=== PATIENT | female | born 1950 | race Caucasian/White ===

== ENCOUNTER → 2023-05-02 06:26 | Day surgery (SDC) | payer MEDICARE, OTHER, SELFPAY | LOC: GI 06:26 | PROVIDERS: ATTENDING PHYSICIAN Internal Medicine Gastroenterology; FAMILY PHYSICIAN Internal Medicine | DX: K20.90 Esophagitis, unspecified without bleeding (principal); K22.89 Other specified disease of esophagus; K44.9 Diaphragmatic hernia without obstruction or gangrene; K31.7 Polyp of stomach and duodenum; R13.10 Dysphagia, unspecified | CPT/HCPCS: 43249; 88305 ==

== ENCOUNTER → 2023-06-09 13:15 | Outpatient (REF) | payer MEDICARE, OTHER, SELFPAY ==
[2023-06-09 16:39] LABS: Erythrocyte Sed Rate 85 mm/hour (0-20)
[2023-06-09 16:46] LABS: C-Reactive Protein < 5.00 mg/L (0.0-10.00)
[2023-06-09 17:04] LABS: % Basophils 0.2 % (0-2); % Eosinophils 0.9 % (0-6); % Immature Granulocytes 0.2 % (0-0.5); % Lymphocytes 26.2 % (20.5-51.1); % Monocytes 6.6 % (1.7-9.3); % Neutrophils 65.9 % (42.2-75.2); Absolute Eosinophils 0.1 10^3/uL (0-0.7); Absolute Lymphocytes 1.4 10^3/uL (1.2-3.4); Absolute Monocytes 0.4 10^3/uL (0.1-0.6); Absolute Neutrophils 3.5 10^3/uL (1.4-6.5); Hematocrit 38.7 % (37.0-47.0); Hemoglobin 12.9 g/dL (12.0-16.0); Mean Corp Hgb Conc. 33.3 g/dL (33.0-37.0); Mean Corpuscular Hgb 32.7 pg (27.0-31.0); Mean Corpuscular Volume 98.2 fL (81.0-99.0); Mean Platelet Volume 11.3 fL (7.4-10.4); Nucleated Red Blood Cells % 0 %; Platelet Count 225 10^3/uL (130-400); Red Blood Cell Count 3.94 10^6/uL (4.20-5.40); Red Cell Dist. Width 12.6 % (11.5-14.5); White Blood Cell Count 5.3 10^3/uL (4.8-10.8)
[2023-06-12 07:22] LABS: CCP Antibody IgG/IgA 5 Units (0-19)
[2023-06-12 14:49] LABS: Rheumatoid Agglutinin Positive (<10 IU)
[2023-06-12 16:07] LABS: Rheumatoid Agg. Semi-quant 8 IU
== END ==
LOC: HWLAB 13:15
PROVIDERS: ATTENDING PHYSICIAN Internal Medicine
DX: M79.642 Pain in left hand (principal)
CPT/HCPCS: 36415; 85025; 85652; 86140; 86200; 86430; 86431

== ENCOUNTER → 2023-08-01 09:15 | Outpatient (REF) | payer MEDICARE, OTHER, SELFPAY ==
[2023-08-01 12:38] LABS: Erythrocyte Sed Rate 94 mm/hour (0-20)
[2023-08-01 13:38] LABS: C-Reactive Protein < 5.00 mg/L (0.0-10.00)
[2023-08-04 16:26] LABS: Rheumatoid Agglutinin Positive (<10 IU)
[2023-08-04 16:45] LABS: Rheumatoid Agg. Semi-quant 128 IU
== END ==
LOC: HWRAD 09:15
PROVIDERS: ATTENDING PHYSICIAN Internal Medicine Rheumatology; FAMILY PHYSICIAN Internal Medicine
DX: M81.0 Age-related osteoporosis without current pathological fracture (principal); M25.50 Pain in unspecified joint; M79.642 Pain in left hand; R70.0 Elevated erythrocyte sedimentation rate; M25.531 Pain in right wrist; M25.532 Pain in left wrist; M79.641 Pain in right hand
CPT/HCPCS: 36415; 73110; 73130; 77080; 85652; 86140; 86430; 86431

== ENCOUNTER → 2023-08-04 07:41 | Outpatient (REF) | payer MEDICARE, OTHER, SELFPAY ==
[2023-08-06 11:04] LABS: Alpha 1 Globulin 0.22 g/dL (0.19-0.46); Alpha 2 Globulin 0.74 g/dL (0.48-1.05); SPEP IFE Reflex Not Done; Total Protein-Electrophoresis 7.1 g/dL (6.3-8.2)
== END ==
LOC: HWLAB 07:41
PROVIDERS: ATTENDING PHYSICIAN Internal Medicine
DX: R73.03 Prediabetes (principal); K58.2 Mixed irritable bowel syndrome; N18.31 Chronic kidney disease, stage 3a; K21.9 Gastro-esophageal reflux disease without esophagitis; D72.819 Decreased white blood cell count, unspecified; E85.9 Amyloidosis, unspecified
CPT/HCPCS: 36415; 84155; 84165

== ENCOUNTER → 2023-12-03 09:36 | Outpatient (REF) | payer MEDICARE, OTHER, SELFPAY ==
[2023-12-03 13:10] LABS: ALT (SGPT) 25 U/L (0-35); AST (SGOT) 27 U/L (14-36); Albumin 4.6 g/dl (3.5-5.0); Alkaline Phosphatase 65 U/L (38-126); Blood Urea Nitrogen 24 mg/dl (7-17); Calcium 9.7 mg/dl (8.4-10.2); Carbon Dioxide 25 mmol/L (22-30); Chloride 102 mmol/L (98-107); Glucose 89 mg/dl (70-99); Potassium 4.2 mmol/L (3.5-5.1); Sodium 141 mmol/L (135-145); Total Bilirubin 0.6 mg/dl (0.2-1.3); Total Protein 7.1 g/dl (6.3-8.2); eGFR 59.49
[2023-12-03 13:11] LABS: C-Reactive Protein < 5.00 mg/L (0.0-10.00)
[2023-12-03 13:38] LABS: % Basophils 0.4 % (0-2); % Eosinophils 0.9 % (0-6); % Immature Granulocytes 0.2 % (0-0.5); % Lymphocytes 28.2 % (20.5-51.1); % Monocytes 8.7 % (1.7-9.3); % Neutrophils 61.6 % (42.2-75.2); Absolute Lymphocytes 1.3 10^3/uL (1.2-3.4); Absolute Monocytes 0.4 10^3/uL (0.1-0.6); Absolute Neutrophils 2.8 10^3/uL (1.4-6.5); Hematocrit 36.6 % (37.0-47.0); Hemoglobin 13.1 g/dL (12.0-16.0); Mean Corp Hgb Conc. 35.8 g/dL (33.0-37.0); Mean Corpuscular Hgb 36.7 pg (27.0-31.0); Mean Corpuscular Volume 102.5 fL (81.0-99.0); Mean Platelet Volume 11.4 fL (7.4-10.4); Nucleated Red Blood Cells % 0 %; Platelet Count 223 10^3/uL (130-400); Red Blood Cell Count 3.57 10^6/uL (4.20-5.40); Red Cell Dist. Width 13.4 % (11.5-14.5); White Blood Cell Count 4.5 10^3/uL (4.8-10.8)
[2023-12-03 14:43] LABS: Glycohemoglobin (HgbA1c) 5.4 % (4.0-5.6)
[2023-12-04 13:08] LABS: Rheumatoid Agglutinin Less Than 10 IU (<10 IU)
[2023-12-04 18:40] LABS: Hepatitis B Surface Antigen Negative (Negative)
[2023-12-04 18:58] LABS: Hepatitis B Surface Antibody Negative; Hepatitis C Antibody Negative (Negative)
[2023-12-06 01:07] LABS: Albumin 4.28 g/dL (3.75-5.01); Alpha 1 Globulin 0.22 g/dL (0.19-0.46); Alpha 2 Globulin 0.73 g/dL (0.48-1.05); SPEP IFE Reflex Not Done
== END ==
LOC: HWLAB 09:36
PROVIDERS: ATTENDING PHYSICIAN Internal Medicine Rheumatology; FAMILY PHYSICIAN Internal Medicine
DX: M25.50 Pain in unspecified joint (principal); M79.642 Pain in left hand; M85.80 Other specified disorders of bone density and structure, unspecified site; R70.0 Elevated erythrocyte sedimentation rate; R73.03 Prediabetes; K58.2 Mixed irritable bowel syndrome; N18.31 Chronic kidney disease, stage 3a; K21.9 Gastro-esophageal reflux disease without esophagitis; D72.819 Decreased white blood cell count, unspecified; E85.9 Amyloidosis, unspecified
CPT/HCPCS: 36415; 80053; 83036; 84100; 84155; 84165; 85025; 85652; 86140; 86430; 86706; 86803; 87340

== ENCOUNTER → 2024-01-05 10:30 | Outpatient (REF) | payer MEDICARE, OTHER, SELFPAY ==
[2024-01-05 13:17] LABS: TSH < 0.02 uIU/ml (0.47-4.68)
[2024-01-05 13:20] LABS: % Basophils 0.4 % (0-2); % Eosinophils 0.9 % (0-6); % Immature Granulocytes 0.2 % (0-0.5); % Lymphocytes 23.2 % (20.5-51.1); % Neutrophils 66.3 % (42.2-75.2); Absolute Lymphocytes 1.1 10^3/uL (1.2-3.4); Absolute Monocytes 0.4 10^3/uL (0.1-0.6); Absolute Neutrophils 3.1 10^3/uL (1.4-6.5); Hematocrit 37.5 % (37.0-47.0); Hemoglobin 12.6 g/dL (12.0-16.0); Mean Corp Hgb Conc. 33.6 g/dL (33.0-37.0); Mean Corpuscular Hgb 33.2 pg (27.0-31.0); Mean Corpuscular Volume 98.7 fL (81.0-99.0); Mean Platelet Volume 11.7 fL (7.4-10.4); Nucleated Red Blood Cells % 0 %; Platelet Count 225 10^3/uL (130-400); Red Cell Dist. Width 12.4 % (11.5-14.5); Reticulocyte Count 1.3 % (0.4-2.8); White Blood Cell Count 4.7 10^3/uL (4.8-10.8)
[2024-01-08 07:30] LABS: ANA, IgG Reflex to HEp-2 None Detected (None Detected)
== END ==
LOC: HWLAB 10:30
PROVIDERS: ATTENDING PHYSICIAN Internal Medicine; REFERRING PHYSICIAN Internal Medicine Hematology & Oncology
DX: N18.2 Chronic kidney disease, stage 2 (mild) (principal); K58.8 Other irritable bowel syndrome; R70.0 Elevated erythrocyte sedimentation rate; D72.819 Decreased white blood cell count, unspecified; R73.03 Prediabetes; D75.89 Other specified diseases of blood and blood-forming organs; Z00.00 Encounter for general adult medical examination without abnormal findings
CPT/HCPCS: 36415; 84443; 85025; 85045; 86038

== ENCOUNTER → 2024-01-07 09:22 | Outpatient (REF) | payer MEDICARE, OTHER, SELFPAY ==
[2024-01-07 13:44] LABS: Folate > 20.0 ng/ml (2.76-20); Vitamin B12 820 pg/ml (239-931)
== END ==
LOC: HWLAB 09:22
PROVIDERS: ATTENDING PHYSICIAN Internal Medicine
DX: K58.8 Other irritable bowel syndrome (principal); N18.2 Chronic kidney disease, stage 2 (mild); R70.0 Elevated erythrocyte sedimentation rate; Z79.899 Other long term (current) drug therapy; D72.819 Decreased white blood cell count, unspecified; R73.03 Prediabetes; D75.89 Other specified diseases of blood and blood-forming organs; Z00.00 Encounter for general adult medical examination without abnormal findings
CPT/HCPCS: 36415; 82607; 82746

== ENCOUNTER → 2024-04-13 14:39 | Outpatient (REF) | payer MEDICARE, OTHER, SELFPAY | LOC: HWWDC 14:39 | PROVIDERS: ATTENDING PHYSICIAN Internal Medicine | DX: Z12.31 Encounter for screening mammogram for malignant neoplasm of breast (principal) | CPT/HCPCS: 77063; 77067 ==

== ENCOUNTER → 2024-04-20 11:52 | Outpatient (REF) | payer MEDICARE, OTHER, SELFPAY ==
[2024-04-20 16:07] LABS: Free T4 0.84 ng/dl (0.78-2.19)
[2024-04-20 16:21] LABS: TSH < 0.02 uIU/ml (0.47-4.68)
== END ==
LOC: HWLAB 11:52
PROVIDERS: ATTENDING PHYSICIAN Internal Medicine; FAMILY PHYSICIAN Internal Medicine
DX: R79.89 Other specified abnormal findings of blood chemistry (principal); R73.03 Prediabetes
CPT/HCPCS: 36415; 84439; 84443

== ENCOUNTER → 2024-05-31 10:13 | Outpatient (REF) | payer MEDICARE, OTHER, SELFPAY ==
[2024-05-31 13:16] LABS: Free T3 2.88 pg/ml (2.77-5.27); Free T4 0.93 ng/dl (0.78-2.19)
[2024-05-31 13:29] LABS: TSH < 0.02 uIU/ml (0.47-4.68)
[2024-06-01 11:40] LABS: Thyroglobulin Antibodies <1.5 IU/mL (0.0-4.0); Thyroid Peroxidase Ab (TPO) 1.2 IU/mL (0.0-9.0)
== END ==
LOC: HWLAB 10:13
PROVIDERS: ATTENDING PHYSICIAN Internal Medicine
DX: R79.89 Other specified abnormal findings of blood chemistry (principal); R73.03 Prediabetes
CPT/HCPCS: 36415; 84439; 84443; 84481; 86376; 86800

== ENCOUNTER → 2024-08-04 07:50 | Outpatient (REF) | payer MEDICARE, OTHER, SELFPAY ==
[2024-08-04 10:46] LABS: % Basophils 0.5 % (0-2); % Eosinophils 1.6 % (0-6); % Immature Granulocytes 0.2 % (0-0.5); % Lymphocytes 26.6 % (20.5-51.1); % Neutrophils 62.1 % (42.2-75.2); Absolute Eosinophils 0.1 10^3/uL (0-0.7); Absolute Lymphocytes 1.5 10^3/uL (1.2-3.4); Absolute Monocytes 0.5 10^3/uL (0.1-0.6); Absolute Neutrophils 3.5 10^3/uL (1.4-6.5); Hematocrit 37.6 % (37.0-47.0); Hemoglobin 12.4 g/dL (12.0-16.0); Mean Corpuscular Hgb 32.4 pg (27.0-31.0); Mean Corpuscular Volume 98.2 fL (81.0-99.0); Mean Platelet Volume 11.6 fL (7.4-10.4); Nucleated Red Blood Cells % 0 %; Platelet Count 219 10^3/uL (130-400); Red Blood Cell Count 3.83 10^6/uL (4.20-5.40); Red Cell Dist. Width 12.7 % (11.5-14.5); White Blood Cell Count 5.6 10^3/uL (4.8-10.8)
== END ==
LOC: HWLAB 07:50
PROVIDERS: ATTENDING PHYSICIAN Internal Medicine Hematology & Oncology; FAMILY PHYSICIAN Internal Medicine
DX: R59.0 Localized enlarged lymph nodes (principal); D72.819 Decreased white blood cell count, unspecified; D53.9 Nutritional anemia, unspecified
CPT/HCPCS: 36415; 85025

== ENCOUNTER → 2024-08-25 09:24 | Outpatient (REF) | payer MEDICARE, OTHER, SELFPAY ==
[2024-08-25 12:10] LABS: ALT (SGPT) 24 U/L (0-35); AST (SGOT) 23 U/L (14-36); Albumin 4.4 g/dl (3.5-5.0); Alkaline Phosphatase 61 U/L (38-126); Blood Urea Nitrogen 23 mg/dl (7-17); Calcium 9.4 mg/dl (8.4-10.2); Carbon Dioxide 28 mmol/L (22-30); Chloride 107 mmol/L (98-107); Glucose 81 mg/dl (70-99); Potassium 4.1 mmol/L (3.5-5.1); Sodium 142 mmol/L (135-145); Total Bilirubin 0.5 mg/dl (0.2-1.3); eGFR 59.12
[2024-08-25 12:23] LABS: % Basophils 0.2 % (0-2); % Eosinophils 1.1 % (0-6); % Immature Granulocytes 0.2 % (0-0.5); % Lymphocytes 26.8 % (20.5-51.1); % Monocytes 8.9 % (1.7-9.3); % Neutrophils 62.8 % (42.2-75.2); Absolute Eosinophils 0.1 10^3/uL (0-0.7); Absolute Lymphocytes 1.2 10^3/uL (1.2-3.4); Absolute Monocytes 0.4 10^3/uL (0.1-0.6); Absolute Neutrophils 2.9 10^3/uL (1.4-6.5); Hematocrit 38.7 % (37.0-47.0); Hemoglobin 12.9 g/dL (12.0-16.0); Mean Corp Hgb Conc. 33.3 g/dL (33.0-37.0); Mean Corpuscular Hgb 32.8 pg (27.0-31.0); Mean Corpuscular Volume 98.5 fL (81.0-99.0); Mean Platelet Volume 11.1 fL (7.4-10.4); Nucleated Red Blood Cells % 0 %; Platelet Count 235 10^3/uL (130-400); Red Blood Cell Count 3.93 10^6/uL (4.20-5.40); Red Cell Dist. Width 12.5 % (11.5-14.5); White Blood Cell Count 4.6 10^3/uL (4.8-10.8)
[2024-08-25 12:27] LABS: Free T3 3.23 pg/ml (2.77-5.27); Free T4 0.88 ng/dl (0.78-2.19)
[2024-08-25 12:41] LABS: TSH 0.02 uIU/ml (0.47-4.68)
[2024-08-27 19:05] LABS: Thyroglobulin Antibodies <1.5 IU/mL (0.0-4.0); Thyroid Peroxidase Ab (TPO) 0.6 IU/mL (0.0-9.0)
[2024-08-28 02:34] LABS: Total T3 (Sendout) 87 ng/dL (80-200)
[2024-08-28 02:48] LABS: TSH Receptor Antibody <1.10 IU/L (<=1.75)
[2024-08-28 02:57] LABS: Thyroid Stim. Immunoglobulin <0.10 IU/L (<=0.54)
== END ==
LOC: HWRAD 09:24
PROVIDERS: ATTENDING PHYSICIAN Physician Assistant; FAMILY PHYSICIAN Internal Medicine
DX: E05.90 Thyrotoxicosis, unspecified without thyrotoxic crisis or storm (principal)
CPT/HCPCS: 36415; 76536; 80053; 83520; 84439; 84443; 84445; 84480; 84481; 85025; 86376; 86800

== ENCOUNTER → 2024-09-20 06:38 | Outpatient (REF) | payer MEDICARE, OTHER, SELFPAY | LOC: PAVMRI 06:38 | PROVIDERS: ATTENDING PHYSICIAN Internal Medicine | DX: G43.009 Migraine without aura, not intractable, without status migrainosus (principal); R79.89 Other specified abnormal findings of blood chemistry | CPT/HCPCS: 70551 ==

== ENCOUNTER → 2024-10-04 08:40 | Outpatient (REF) | payer MEDICARE, OTHER, SELFPAY ==
[2024-10-04 12:41] LABS: ALT (SGPT) 20 U/L (0-35); AST (SGOT) 22 U/L (14-36); Albumin 4.1 g/dl (3.5-5.0); Alkaline Phosphatase 53 U/L (38-126); Blood Urea Nitrogen 22 mg/dl (7-17); Calcium 8.9 mg/dl (8.4-10.2); Carbon Dioxide 25 mmol/L (22-30); Chloride 108 mmol/L (98-107); Glucose 96 mg/dl (70-99); Potassium 4.4 mmol/L (3.5-5.1); Sodium 138 mmol/L (135-145); Total Protein 6.6 g/dl (6.3-8.2); eGFR 59.12
[2024-10-04 12:46] LABS: Hematocrit 36.4 % (37.0-47.0); Hemoglobin 12.4 g/dL (12.0-16.0); Mean Corp Hgb Conc. 33.2 g/dL (33.0-37.0); Mean Corpuscular Volume 98.6 fL (81.0-99.0); Nucleated Red Blood Cells % 0 %; Platelet Count 218 10^3/uL (130-400); Red Cell Dist. Width 12.8 % (11.5-14.5)
[2024-10-04 14:06] LABS: C-Reactive Protein < 5.00 mg/L (0.0-10.00)
== END ==
LOC: HWLAB 08:40
PROVIDERS: ATTENDING PHYSICIAN Internal Medicine Rheumatology; FAMILY PHYSICIAN Internal Medicine
DX: M25.50 Pain in unspecified joint (principal); M79.642 Pain in left hand; M85.80 Other specified disorders of bone density and structure, unspecified site; R70.0 Elevated erythrocyte sedimentation rate
CPT/HCPCS: 36415; 80053; 85025; 85652; 86140

== ENCOUNTER → 2024-11-30 09:00 | Outpatient (REF) | payer MEDICARE, OTHER, SELFPAY ==
[2024-11-30 11:56] LABS: Urine Character Clear (Clear)
[2024-11-30 12:40] LABS: ALT (SGPT) 20 U/L (0-35); AST (SGOT) 23 U/L (14-36); Albumin 4.4 g/dl (3.5-5.0); Alkaline Phosphatase 58 U/L (38-126); Blood Urea Nitrogen 25 mg/dl (7-17); Calcium 8.9 mg/dl (8.4-10.2); Carbon Dioxide 28 mmol/L (22-30); Chloride 105 mmol/L (98-107); Glucose 87 mg/dl (70-99); HDL Cholesterol 61 mg/dl; LDL Cholesterol, Calculated 124 mg/dl; Potassium 4.4 mmol/L (3.5-5.1); Sodium 139 mmol/L (135-145); Total Protein 7.1 g/dl (6.3-8.2); Very Low Density Lipoprotein 22 mg/dl (0-30); eGFR 59.12
[2024-11-30 12:53] LABS: Hematocrit 36.6 % (37.0-47.0); Hemoglobin 12.7 g/dL (12.0-16.0); Mean Corp Hgb Conc. 34.7 g/dL (33.0-37.0); Mean Corpuscular Volume 99.7 fL (81.0-99.0); Nucleated Red Blood Cells % 0 %; Platelet Count 220 10^3/uL (130-400); Red Cell Dist. Width 13.0 % (11.5-14.5)
[2024-11-30 12:59] LABS: TSH 2.67 uIU/ml (0.47-4.68)
[2024-11-30 14:12] LABS: Glycohemoglobin (HgbA1c) 5.4 % (4.0-5.6)
== END ==
LOC: HWLAB 09:00
PROVIDERS: ATTENDING PHYSICIAN Internal Medicine
DX: D72.819 Decreased white blood cell count, unspecified (principal); R73.03 Prediabetes; K58.9 Irritable bowel syndrome, unspecified; N18.1 Chronic kidney disease, stage 1
CPT/HCPCS: 36415; 80053; 80061; 81003; 83036; 84443; 85025

== ENCOUNTER → 2024-12-08 08:58 | Outpatient (REF) | payer MEDICARE, OTHER, SELFPAY ==
[2024-12-08 13:06] LABS: C-Reactive Protein < 5.00 mg/L (0.0-10.00)
[2024-12-09 15:22] LABS: Rheumatoid Agglutinin Positive (<10 IU)
[2024-12-09 16:11] LABS: Rheumatoid Agg. Semi-quant 64 IU
[2024-12-10 12:15] LABS: ANA, IgG Reflex to HEp-2 None Detected (None Detected)
== END ==
LOC: HWLAB 08:58
PROVIDERS: ATTENDING PHYSICIAN Internal Medicine
DX: K58.9 Irritable bowel syndrome, unspecified (principal); E05.90 Thyrotoxicosis, unspecified without thyrotoxic crisis or storm; D72.819 Decreased white blood cell count, unspecified; R70.0 Elevated erythrocyte sedimentation rate; M25.521 Pain in right elbow
CPT/HCPCS: 36415; 84155; 84165; 86038; 86140; 86430; 86431

== ENCOUNTER → 2024-12-24 10:56 | Outpatient (REF) | payer MEDICARE, OTHER, SELFPAY | LOC: HWRAD 10:56 | PROVIDERS: ATTENDING PHYSICIAN Internal Medicine Rheumatology; FAMILY PHYSICIAN Internal Medicine | DX: M25.50 Pain in unspecified joint (principal); M54.50 Low back pain, unspecified; M79.642 Pain in left hand; M85.80 Other specified disorders of bone density and structure, unspecified site; R70.0 Elevated erythrocyte sedimentation rate | CPT/HCPCS: 72110 ==

== ENCOUNTER → 2025-01-19 08:39 | Outpatient (REF) | payer MEDICARE, OTHER, SELFPAY ==
[2025-01-19 12:38] LABS: ALT (SGPT) 24 U/L (0-35); AST (SGOT) 26 U/L (14-36); Albumin 4.3 g/dl (3.5-5.0); Alkaline Phosphatase 67 U/L (38-126); Blood Urea Nitrogen 21 mg/dl (7-17); Calcium 9.1 mg/dl (8.4-10.2); Carbon Dioxide 29 mmol/L (22-30); Chloride 105 mmol/L (98-107); Glucose 84 mg/dl (70-99); Potassium 4.0 mmol/L (3.5-5.1); Sodium 138 mmol/L (135-145); Total Protein 7.1 g/dl (6.3-8.2); eGFR > 60.00
[2025-01-19 12:49] LABS: Free T3 2.91 pg/ml (2.77-5.27)
[2025-01-19 13:02] LABS: TSH 0.66 uIU/ml (0.47-4.68)
[2025-01-19 13:13] LABS: Hematocrit 36.9 % (37.0-47.0); Hemoglobin 12.4 g/dL (12.0-16.0); Mean Corp Hgb Conc. 33.6 g/dL (33.0-37.0); Mean Corpuscular Volume 98.4 fL (81.0-99.0); Nucleated Red Blood Cells % 0 %; Platelet Count 238 10^3/uL (130-400); Red Cell Dist. Width 12.8 % (11.5-14.5)
[2025-01-22 06:20] LABS: Total T3 (Sendout) 93 ng/dL (80-200)
== END ==
LOC: HWLAB 08:39
PROVIDERS: ATTENDING PHYSICIAN Physician Assistant; FAMILY PHYSICIAN Internal Medicine
DX: E05.90 Thyrotoxicosis, unspecified without thyrotoxic crisis or storm (principal)
CPT/HCPCS: 36415; 80053; 84439; 84443; 84480; 84481; 85025